=== PATIENT | male | born 1985 | race Two or more races ===

== ENCOUNTER 2018-10-09 11:19 | Emergency (ER) | payer MEDICAID ==
--- NOTE | 2018-10-09 11:56 | UC ---
Minor Trauma HPI - HPI Summary HPI Summary: 33-year-old male presents with family member reporting left sided chest wall pain after accidentally tripping and falling 4 days ago and landing on a bed frame. States pain was initially mild but is progressively worsened especially over the last 2 days. Has been taking naproxen for the pain without relief. Reports some mild shortness of breath and nausea today. Denies head injury, loss of consciousness, neck pain, back pain, cough, palpitations, weakness, dizziness, or vomiting. - History of Current Complaint Chief Complaint: UCGeneralIllness Stated Complaint: FALL,LEFT SIDE PAIN Time Seen by Provider: 10/09/18 11:40 Hx Obtained From: Patient, Family/Bed Maker, Nurse Practitioner Home Assessments Pain Intensity: 8 - Allergies/Home Medications Allergies/Adverse Reactions: Allergies Allergy/AdvReac Type Severity Reaction Status Date / Time No Known Allergies Allergy Verified 10/09/18 11:40 Home Medications: Home Medications NK [No Home Medications Reported] 10/09/18 [History Confirmed 10/09/18] PMH/Surg Hx/FS Hx/Imm Hx Previously Healthy: Yes - Denies significant PMH - Surgical History Surgical History: None - Family History Known Family History: Positive: Non-Contributory - Social History Occupation: Unemployed Lives: With Family Alcohol Use: None Substance Use Type: None Smoking Status (MU): Never Smoked Tobacco Review of Systems All Other Systems Reviewed And Are Negative: Yes Constitutional: Negative: Fever, Chills Skin: Negative: Bruising Respiratory: Positive: Shortness Of Breath, Other - Left sided chest wall pain. Negative: Cough Cardiovascular: Negative: Palpitations, Chest Pain, Other Gastrointestinal: Positive: Abdominal Pain - LUQ, Nausea. Negative: Vomiting, Diarrhea Genitourinary: Negative: Dysuria, Hematuria, Frequency, Urgency Musculoskeletal: Positive: Negative Neurological: Positive: Negative Is Patient Immunocompromised?: No Physical Exam - Summary Physical Exam Summary: GENERAL APPEARANCE: Well developed, well nourished, alert and cooperative, and appears to be in no acute distress. HEAD: Atraumatic. normocephalic. NECK: Neck supple, non-tender. CARDIAC: Normal S1 and S2. No S3, S4 or murmurs. Rhythm is regular. There is no peripheral edema, cyanosis or pallor. Extremities are warm and well perfused. Capillary refill is less than 2 seconds. Peripheral pulses intact. LUNGS: Left sided chest wall tenderness without ecchymosis, crepitus, or subcutaneous emphysema. Clear to auscultation without rales, rhonchi, wheezing or diminished breath sounds. ABDOMEN: Positive bowel sounds. Soft, nondistended. Tenderness to the LUQ with mild guarding. No rebound. No masses or hepatosplenomegally. No eccymosis. MUSKULOSKELETAL: ROM intact to all extremities. No joint erythema or tenderness. Normal muscular development. Normal gait. BACK: Examination of the spine reveals normal gait and posture, no spinal deformity or tenderness, decreased range of motion or muscular spasm. SKIN: Skin normal color, texture and turgor with no lesions or eruptions. Triage Information Reviewed: Yes Vital Signs: Initial Vital Signs Temp 98.1 F 10/09/18 11:41 Pulse 70 10/09/18 11:41 Resp 20 10/09/18 11:41 BP 131/68 10/09/18 11:41 Pulse Ox 100 10/09/18 11:41 Vital Signs Reviewed: Yes Diagnostics - Radiology No standard instances Radiology Interpretation Completed By: Radiologist Summary of Radiographic Findings: Order Information: RIBS LT UNI W/PA CH MIN 3 VWS. Accession Number: [id number]. CPT: 22066. Indication: LEFT chest wall pain post fall. Comparison: No relevant prior exams available on the [facility] PACS for comparison. Technique: Dual energy PA chest and 4 view dedicated LEFT rib series. Report: Negative for LEFT rib fracture, pulmonary contusion, pleural effusion, or pneumothorax. The heart, pulmonary vasculature, and mediastinal contours are unremarkable. Suggestion of mild soft tissue edema at the LEFT lateral chest wall above the level of the skin marker indicating the site of clinical concern. IMPRESSION: #. Negative for fracture. #. Suggestion of mild soft tissue edema at the LEFT lateral chest wall above the level of the skin marker indicating the site of clinical concern. Order Information: US ABDOMEN LIMITED. Accession Number: [id number]. CPT: 06295. INDICATION: Left upper quadrant pain status post blunt trauma. COMPARISON: There are no relevant prior studies available for comparison. TECHNIQUE: Multiple real-time images of the left upper quadrant were obtained. FINDINGS: The spleen is normal in size, shape and echogenicity. The spleen measured 9.3 x 3.2 x 3.4 cm. No focal abnormalities were seen. The left kidney is normal in size shape and echogenicity measuring a 10.3 x 5.3 x 5.0 cm. No hydronephrosis is present. No free intraperitoneal fluid is seen. IMPRESSION: NEGATIVE EXAM, NO EVIDENCE FOR SPLENIC INJURY. Minor Trauma Course/Dx - Course Course Of Treatment: 33-year-old male presents with family member reporting left sided chest wall pain after accidentally tripping and falling 4 days ago and landing on a bed frame. States pain was initially mild but is progressively worsened especially over the last 2 days. Has been taking naproxen for the pain without relief. Reports some mild shortness of breath and nausea today. Denies head injury, loss of consciousness, neck pain, back pain, cough, palpitations, weakness, dizziness, or vomiting. Afebrile. Mildly hypertensive otherwise vital signs stable. Exam was remarkable for left lateral chest wall tenderness without ecchymosis, crepitus, or subcutaneous emphysema, and left upper quadrant abdominal tenderness with mild guarding without ecchymosis. Chest x-ray and left rib series were negative. Ultrasound of the LUQ was obtained. No evidence of splenic injury or free fluid. Recommending conservative treatment of contusion of the chest wall and abdomen. He is to return in 5-7 days if no improvement in symptoms. Anticipatory guidance and warning symptoms were reviewed with the patient. Verbalizes understanding and agrees with POC. The entirety of the visit was conducted through an it quality analyst. - Differential Dx/Diagnosis Differential Diagnosis/HQI/PQRI: Contusion(s), Fracture, Other - Chest wall pain Provider Diagnosis: Left-sided chest wall pain, LUQ abdominal pain Discharge - Sign-Out/Discharge Documenting (check all that apply): Patient Departure All imaging exams completed and their final reports reviewed: Yes - Discharge Plan Condition: Stable Disposition: HOME Patient Education Materials: Acute Abdominal Pain (ED), Chest Wall Pain (ED) Referrals: No Primary Care Phys,NOPCP [Primary Care Provider] - Additional Instructions: The chest x-ray and rib x-rays performed in the clinic today were normal. The ultrasound of the abdomen was also normal. I suspect that you have a contusion (bruise) of the chest wall and abdomen from your fall. Continue to use an over the counter pain medication such as acetaminophen ( Tylenol), ibuprofen (Advil, Motrin), or naproxen (Aleve) according to directions as needed. You can try applying some ice to the affected area for 15-20 minutes at least 4 times a day to help with pain and swelling. Return in 5-7 days if no improvement in your symptoms. Seek immediate medical attention in the emergency room if you develop fever greater than 100.5 F, have severe or worsening of your pain despite taking pain medication, have difficulty breathing, cough up blood, become weak or dizzy, develop persistent vomiting, or any worsening of symptoms. - Billing Disposition and Condition Condition: STABLE Disposition: Home - Attestation Statements Provider Attestation: Per institutional requirements, I have reviewed the chart. I did not personally evaluate, interact with , or disposition this patient.
[2018-10-09 14:13] VITALS: BP 107/67
== END 2018-10-09 14:20 | disposition home or self-care (01) ==
LOC: UCCORT 11:19
DX: R07.89 Other chest pain (principal); R10.12 Left upper quadrant pain; R06.02 Shortness of breath; R11.0 Nausea
CPT/HCPCS: 76705; 99202; G0463